=== PATIENT | female | born 1975 | race Caucasian/White ===

== ENCOUNTER 2024-04-23 21:11 | Observation (INO) | payer MEDICARE ==
[2024-04-23] MEDS ORDERED: NITRO-BID 2% UD PACKETS ONE (21:15)
[2024-04-23] MEDS ORDERED: BABY ASPIRIN 81 MG CHEW ONE (21:42)
[2024-04-23] MEDS: BABY ASPIRIN 81 MG CHEW PO ONE (21:43)
[2024-04-23 21:50] LABS: Absolute Neutrophil Ct (ANC) 3.45 x10^3/uL (1.56-6.13); BASOPHIL % 0.8 % (0.1-1.2); Basophil (Absolute #) 0.08 x10^3/uL (0.01-0.08); Eosinophil % 2.9 % (0.7-5.8); Eosinophil (Absolute #) 0.28 x10^3/uL (0.04-0.36); Hematocrit 39.8 % (34.1-44.9); Hemoglobin 13.2 g/dL (11.2-15.7); IMMATURE GRAN # 0.01 x10^3u/L (0.001-0.031); IMMATURE GRAN % 0.1 % (0.001-0.429); Lymphocyte (Absolute #) 4.82 x10^3/uL (1.18-3.74); Lymphocytes % 50.2 % (19.3-51.7); Mean Cell Volume 91.9 fL (79.4-94.8); Mean Corpuscular Hemoglobin 30.5 pg (25.6-32.2); Mean Corpuscular Hgb Concent. 33.2 g/dL (32.2-35.5); Mean Platelet Volume 11.1 fL (9.4-12.3); Monocyte (Absolute #) 0.96 x10^3/uL (0.24-0.86); Platelet Count 317 x10^3/uL (182-369); Red Blood Count 4.33 x10^6/uL (3.93-5.22); Red Cell Distribution Width 14.7 % (11.7-14.4); White Blood Count 9.6 x10^3/uL (3.98-10.04)
[2024-04-23 22:04] LABS: INR 0.94 (0.8-3.0); PROTIME 10.3 SECONDS (9.4-12.5)
[2024-04-23] MEDS: NITRO-BID 2% UD PACKETS TOP ONE (22:09)
[2024-04-23 22:14] LABS: ALBUMIN 4.6 g/dL (3.5-5.0); ANION GAP 14.9 MEQ/L (5-15); BILIRUBIN,TOTAL 0.3 mg/dL (0.2-1.3); Calcium 9.7 mg/dL (8.4-10.2); Creatinine 1 0.99 mg/dL (0.52-1.04); Total Protein 7.4 g/dL (6.3-8.2)
--- NOTE | 2024-04-23 22:59 | ERPHSYRPT ---
- History of Present Illness Time Seen by Provider: 04/23/24 21:15 Historian: patient, family Exam Limitations: no limitations Patient Subjective Stated Complaint: PT. STATES, "IM HAVING CHEST PAIN ON LEFT SIDE ONSET APPROX 8 OR 8:30PM, ALL DAY LONG WHEN I WENT TO STAND UP I WOULD GET REALLY DIZZY AND LIGHTHEAD AND I'D HAVE TO SIT RIGHT BACK DOWN. I FELT LIKE MY BLOOD PRESSURE IS DROPPING, KATHI BEEN SUPER WEAK." Triage Nursing Assessment: PT. BROUGHT TO ROOM BY W/C, ABLE TO TRASFER TO BED WITH ASSIST X1, A&OX3, SKIN P/W/D, RESP EVEN UNLABORED. NO EDEMA. ABLE TO MOVE ALL FOUR EXTREMITIES. Physician History: This is a 49-year-old white female patient who has a significant cardiac history as well as having history of hypertension, diabetes and hyperlipidemia. She presents with left anterior chest pain that she describes as ache and pressure without radiation. She states that similar to her other episodes of myocardial infarction's. Patient has had several cardiac bypass grafts in place. She also states in December 2023, she underwent a single cardiac stent placement. 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 Patient takes 1 baby aspirin a day and also is taking Brilinta. Her systolic blood pressure on arrival to emergency department is 193 mmHg. Patient states that she did take her medication as prescribed. Patient also noticed she had associated lightheadedness when she tried to stand up. She feels weak. She has not had any nausea vomiting or diarrhea symptoms. She has no flulike symptoms. She has not had a fever or cough. Timing/Duration: today Activities at Onset: none Quality: aching, pressure Location: other (Left chest) Chest Pain Radiation: no radiation Severity of Pain-Max: moderate Severity of Pain-Current: mild (To moderate) Modifying Factors: Improves With: other (Standing up gives the patient associated lightheadedness) Associated Symptoms: dizziness, No shortness of breath Nitro Today/Relief: no nitro taken today Aspirin Treatment Today: 81 mg x 1, 81 mg x 3 (We provided the patient with 81 mg tablets x 3), provided at home Allergies/Adverse Reactions: shellfish derived Allergy (Severe, Verified 04/23/24 21:59) polymyxin B Allergy (Intermediate, Verified 04/23/24 21:59) Sulfa (Sulfonamide Antibiotics) Allergy (Intermediate, Verified 12/16/24 21:59) trazodone Allergy (Intermediate, Verified 04/23/24 21:56) NSAIDS (Non-Steroidal Anti-Inflamma Adverse Reaction (Verified 04/23/24 21:59) R/T HX OF POOR KIDNEY FX Home Medications: Albuterol 8 gm Mdi Hfa [Ventolin Hfa MDI] 2 puffs IH Q4H PRN 04/23/24 [History] Atorvastatin Calcium 1 tab PO DAILY 04/23/24 [History] Buspirone HCl 5 mg [Buspar 5 mg] 1 tab PO DAILY 04/23/24 [History] Empagliflozin [Jardiance] 1 tab PO DAILY 04/23/24 [History] Escitalopram Oxalate 1 tab PO DAILY 04/23/24 [History] Ezetimibe 10 mg [Zetia 10 MG] 1 tab PO DAILY 04/23/24 [History] Fluticasone Propionate [Flonase NASAL] 1 spray NS DAILY 04/23/24 [History] Gabapentin 1 tab PO DAILY 04/23/24 [History] Lisinopril 20 mg [Zestril 20 MG] 1 tab .ROUTE DAILY 04/23/24 [History] Metoprolol Tartrate 50 mg [Lopressor 50 MG] 1 tab PO DAILY 04/23/24 [History] Potassium Chloride Tab* [Klor Con] 1 tab PO DAILY 04/23/24 [History] Ticagrelor [Brilinta] 1 tab PO DAILY 04/23/24 [History] clonazePAM [Clonazepam] 1 tab PO DAILY 04/23/24 [History] Hx Tetanus, Diphtheria Vaccination/Date Given: Yes Hx Influenza Vaccination/Date Given: No Hx Pneumococcal Vaccination/Date Given: Yes Immunizations Up to Date: No Travel Risk - International Travel Have you traveled outside of the country in past 3 weeks: No - Emerging Infectious Disease Are you exhibiting symptoms associated with any current EIDs: No - Review of Systems Constitutional: Weakness Eyes: No Symptoms Ears, Nose, & Throat: No Symptoms Respiratory: No Symptoms Cardiac: Chest Pain Abdominal/Gastrointestinal: No Symptoms Genitourinary Symptoms: No Symptoms Musculoskeletal: No Symptoms Skin: No Symptoms Neurological: Other (Lightheadedness intermittently) Endocrine: No Symptoms Hematologic/Lymphatic: No Symptoms Immunological/Allergic: No Symptoms All Other Systems: Reviewed and Negative - Past Medical History Pertinent Past Medical History: Yes Neurological History: Stroke ENT History: No Pertinent History Cardiac History: Arrhythmia, Congestive Heart Failure, Coronary Artery Disease, Deep Vein Thrombosis, High Cholesterol, Hypertension, Myocardial Infarction ([place]), Peripheral Vascular Disease Respiratory History: Asthma, CHF Endocrine Medical History: No Pertinent History Musculoskeletal History: No Pertinent History GI Medical History: Colitis, GERD History: Other Psycho-Social History: Anxiety, Depression, Other Female Reproductive Disorders: No Pertinent History Other Medical History: PTSD, IMPULSE CONTROL DISORDER, ACUTE KIDNEY INJURY IN THE PAST - Past Surgical History Past Surgical History: Yes Cardiac: CABG, Cardiac Catheterization, Cardiac Stent Gastrointestinal: Appendectomy Genitourinary: No Pertinent History Musculoskeletal: No Pertinent History Female Surgical History: No Pertinent History Other Surgical History: STENT PLACED IN BYPASS IN DECEMBER, CABG 12/2014, ABDOMINAL ADHESIONS REMOVED AND TUBAL IN 1997, - Female History Hx Last Menstrual Period: POST MENOPAUSAL - Social History Smoking Status: Current every day smoker How long have you smoked: 35 YEARS Exposure to second hand smoke: Yes Drug Use: none - Social Determinants of Health Will the patient participate in the screening: Yes Do you worry about a steady place to live?: No Do you have any problems with any of the following?: No known problems In the past 12 months,have you had to go without utilities?: No Transportation Issues: No Has anyone in your support network made you feel unsafe?: No Have you or anyone in your house had to go without enough: No - Nursing Vital Signs Nursing Vital Signs: Initial Vital Signs Pulse Rate 64 04/23/24 21:09 Blood Pressure 193/82 04/23/24 21:09 Pain Scale Pain Intensity 6 - Physical Exam General Appearance: no apparent distress, alert, anxiety Eye Exam: PERRL/EOMI, eyes nml inspection Ears, Nose, Throat Exam: normal ENT inspection, moist mucous membranes Neck Exam: normal inspection, non-tender, supple, full range of motion Respiratory Exam: normal breath sounds, chest tenderness (Left chest), lungs clear, airway intact, No respiratory distress Cardiovascular Exam: regular rate/rhythm, normal heart sounds, normal peripheral pulses Gastrointestinal/Abdomen Exam: soft, normal bowel sounds, No tenderness Pelvic Exam: not done Rectal Exam: not done Back Exam: normal inspection, normal range of motion, No CVA tenderness, No kulwinder tebral tenderness Extremity Exam: normal range of motion, pelvis stable Neurologic Exam: alert, oriented x 3, cooperative, inspector outside production II-XII nml as tested, nml cerebellar function, nml station & gait, sensation nml Skin Exam: normal color, warm, dry Lymphatic Exam: No adenopathy SpO2 Interpretation: normal SpO2: 96 O2 Delivery: Oxymizer - Course Nursing assessment & vital signs reviewed: Yes EKG Interpreted by Me: RATE (61), NORMAL AXIS, NORMAL INTERVALS, Right Bundle Branch Block, Other (No acute ischemic changes. QTc 445) Ordered Tests: Active Orders 24 hr Category Date Time Status Networking Technician STAT Care 04/23/24 21:36 Active EKG-ER Only STAT Care 04/23/24 21:35 Active IV Insertion STAT Care 04/23/24 21:35 Active Pulse Oximetry (ED) STAT Care 04/23/24 21:35 Active CHEST 1 VIEW (PORTABLE) Stat Exams 04/23/24 21:35 Taken CBC W DIFF Stat Lab 04/23/24 21:30 Completed CMP Stat Lab 04/23/24 21:30 Completed NT PRO BNPII Stat Lab 04/23/24 21:30 Completed PROTIME WITH INR Stat Lab 04/23/24 21:30 Completed TROPONIN Q4H Lab 04/23/24 21:30 Completed TROPONIN Q4H Lab 04/24/24 00:15 Completed TROPONIN Q4H Lab 04/24/24 05:45 Ordered Transfer Order Routine Transfer 04/24/24 Ordered Medication Summary Discontinued Medications Generic Name Dose Route Start Last Admin Trade Name Jose Miguel PRN Reason Stop Dose Admin Aspirin 243 mg 04/23/24 21:35 04/23/24 21:43 Aspirin 81 Mg Tab.Chew PO 04/23/24 21:36 243 mg STAT ONE Administration Aspirin Confirm 04/23/24 21:42 Aspirin 81 Mg Tab.Chew Administered 04/23/24 21:43 Dose 243 mg .ROUTE .STK-MED ONE Sodium Chloride 500 mls @ 500 mls/hr 04/23/24 22:59 04/23/24 23:03 Sodium Chloride 0.9% 500 Ml IV 04/23/24 23:58 500 mls/hr .Q1H ONE Administration Sodium Chloride Confirm 04/23/24 23:02 Sodium Chloride 0.9% 500 Ml Administered 04/23/24 23:03 Dose 500 mls @ ud IV .STK-MED ONE Nitroglycerin Confirm 04/23/24 21:15 Nitroglycerin 1 Gm Packet Administered 04/23/24 21:16 Dose 1 gm .ROUTE .STK-MED ONE Nitroglycerin 1 gm 04/23/24 22:08 04/23/24 22:09 Nitroglycerin 1 Gm Packet TOP 04/23/24 22:09 1 gm STAT ONE Administration Lab/Rad Data: Laboratory Result Diagrams 04/23/24 21:30 04/23/24 21:30 Laboratory Results 04/24/24 04/23/24 04/23/24 Range/Units 00:15 21:30 21:30 WBC (3.98-10.04) x10^3/uL RBC (3.93-5.22) x10^6/uL Hgb (11.2-15.7) g/dL Hct (34.1-44.9) % MCV (79.4-94.8) fL MCH (25.6-32.2) pg MCHC (32.2-35.5) g/dL RDW (11.7-14.4) % Plt Count (182-369) x10^3/uL MPV (9.4-12.3) fL Gran % (34.0-71.1) % Immature Gran % (Auto) (0.001-0.429) % Nucleat RBC Rel Count (0.00-0.2) % Eos # (Auto) (0.04-0.36) x10^3/uL Immature Gran # (Auto) (0.001-0.031) x10^3u/L Absolute Lymphs (auto) (1.18-3.74) x10^3/uL Absolute Monos (auto) (0.24-0.86) x10^3/uL Absolute Nucleated RBC (0.00-0.012) x10^3u/L Lymphocytes % (19.3-51.7) % Monocytes % (4.7-12.5) % Eosinophils % (0.7-5.8) % Basophils % (0.1-1.2) % Absolute Granulocytes (1.56-6.13) x10^3/uL Basophils # (0.01-0.08) x10^3/uL PT 10.3 (9.4-12.5) SECONDS INR 0.94 (0.8-3.0) Sodium (135-145) mmol/L Potassium (3.5-5.1) mmol/L Chloride (98-107) mmol/L Carbon Dioxide (22-30) mmol/L Anion Gap (5-15) MEQ/L BUN (7-17) mg/dL Creatinine (0.52-1.04) mg/dL Estimated GFR ML/MIN Glucose (74-106) mg/dL Calcium (8.4-10.2) mg/dL Total Bilirubin (0.2-1.3) mg/dL AST (14-36) U/L ALT (0-35) U/L Alkaline Phosphatase (38-126) U/L Troponin I < 0.012 < 0.012 (0.000-0.033) ng/mL NT-Pro-B Natriuret Pep (<300) pg/mL Serum Total Protein (6.3-8.2) g/dL Albumin (3.5-5.0) g/dL 04/23/24 04/23/24 Range/Units 21:30 21:30 WBC 9.6 (3.98-10.04) x10^3/uL RBC 4.33 (3.93-5.22) x10^6/uL Hgb 13.2 (11.2-15.7) g/dL Hct 39.8 (34.1-44.9) % MCV 91.9 (79.4-94.8) fL MCH 30.5 (25.6-32.2) pg MCHC 33.2 (32.2-35.5) g/dL RDW 14.7 H (11.7-14.4) % Plt Count 317 (182-369) x10^3/uL MPV 11.1 (9.4-12.3) fL Gran % 36.0 (34.0-71.1) % Immature Gran % (Auto) 0.1 (0.001-0.429) % Nucleat RBC Rel Count 0.0 (0.00-0.2) % Eos # (Auto) 0.28 (0.04-0.36) x10^3/uL Immature Gran # (Auto) 0.01 (0.001-0.031) x10^3u/L Absolute Lymphs (auto) 4.82 H (1.18-3.74) x10^3/uL Absolute Monos (auto) 0.96 H (0.24-0.86) x10^3/uL Absolute Nucleated RBC 0.00 (0.00-0.012) x10^3u/L Lymphocytes % 50.2 (19.3-51.7) % Monocytes % 10.0 (4.7-12.5) % Eosinophils % 2.9 (0.7-5.8) % Basophils % 0.8 (0.1-1.2) % Absolute Granulocytes 3.45 (1.56-6.13) x10^3/uL Basophils # 0.08 (0.01-0.08) x10^3/uL PT (9.4-12.5) SECONDS INR (0.8-3.0) Sodium 141 (135-145) mmol/L Potassium 4.0 (3.5-5.1) mmol/L Chloride 107 (98-107) mmol/L Carbon Dioxide 23 (22-30) mmol/L Anion Gap 14.9 (5-15) MEQ/L BUN 15 (7-17) mg/dL Creatinine 0.99 (0.52-1.04) mg/dL Estimated GFR 69.0 ML/MIN Glucose 119 H (74-106) mg/dL Calcium 9.7 (8.4-10.2) mg/dL Total Bilirubin 0.30 (0.2-1.3) mg/dL AST 29 (14-36) U/L ALT 19 (0-35) U/L Alkaline Phosphatase 93 (38-126) U/L Troponin I (0.000-0.033) ng/mL NT-Pro-B Natriuret Pep 181 (<300) pg/mL Serum Total Protein 7.4 (6.3-8.2) g/dL Albumin 4.6 (3.5-5.0) g/dL - Progress Progress: improved, re-examined Air Movement: good Progress Note: 04/23/24 23:02 My medical decision making and the assignment of moderate complexity to this patient's medical issue today is based on review of the patient's past medical history, review of the patient's medication list, reviewed patient drug allergy list, history present illness and physical findings on examination. The workup in this patient includes placement of an intravenous line, twelve-lead EKG, CBC, CMP, troponin level, BNP, chest x-ray Differential diagnosis includes but is not limited to arrhythmia, electrolyte abnormalities, myocardial infarction, I interpreted the patient's laboratory data results. Based on the laboratory data results, the patient does not have an acute, emergent medical issue. I reexamined the patient. Although her left chest pain has improved it is still present. She also feels lightheaded and dizzy. Her systolic blood pressure has dropped from the initial systolic blood pressure 193 mmHg down to 89 mmHg. We wiped off the nitroglycerin paste. We are providing her with a 500 cc bolus of crystalloid. I will be contacting Dr. Jeronimo, her fuel cell repairer in [place]. The patient states her symptoms are better but she still having persistent intermittent lightheadedness and the chest pain. I was informed by our nursing staff that Dr. Hinojosa is covering for Dr. Elizondo 04/23/24 23:05 I interpreted the patient's preliminary chest x-ray report. There are no acute cardiopulmonary processes 04/23/24 23:12 04/23/24 23:[address] Hinojosa, the fuel cell repairer who is covering for Dr. Jeronimo, the patient's fuel cell repairer. I reviewed the patient history, presenting complaint, workup results and discussed with him the fact that the patient is still symptomatic. She is at high risk and should be observed in a facility where there is a fuel cell repairer. He stated that he would except the patient. However, the transfer center was not on the three-way call as expected and we will contact the transfer center to make sure that he is spoken with them. 04/23/24 23:54 Dr. Hinojosa, the fuel cell repairer covering for this patient's cardiology service this evening, accepts the patient in transfer. However, the transfer center stated that there will not be any beds open until tomorrow morning. We will contact Dr. Christy, our telehospitalist telecommunications manager at this time to place the patient in observation on a monitored bed until transfer can take place tomorrow morning. 04/24/24 00:[address] Christy, our telehospitalist on at this time. I reviewed the patient history, presenting complaint, workup results and discussed with him the most up-to-date vital signs at the time of our discussion. He accepts the patient to be placed in observation. We will repeat a troponin level to make sure it has not suddenly increased from normal. If the repeat troponin is normal, we will proceed with the plan. However, if the troponin has increased, we will need to call the fuel cell repairer in [place] back for a more emerge nt/urgent transfer 04/24/24 00:11 Interpreted the second (3-hour) twelve-lead EKG that was performed on 04/23/2024 at 2258. The heart rate is 57 bpm and is normal sinus rhythm. There is a right bundle manju block. There is no evidence of any acute ischemia. The QTc is 450. Blood Culture(s) Obtained: No Antibiotics given: No Discussed with : Evens Counseled pt/family regarding: lab results, diagnosis, rad results Medical Desision Making - Independent Historian Additional History obtained from: Spouse - Diagnostic Testing Diagnostic test were ordered, analyzed, and reviewed by me: Yes Radiological Interpretation: Interpreted by me - Risk of complications The pt has a high risk of morbidity or mortality based on: Decision regarding hospitilization or escalation of hosp level of care - Departure Departure Disposition: Observation Clinical Impression: Nonspecific chest pain, Lightheadedness Condition: Fair Critical Care Time: No Referrals: DOCTOR,NO FAMILY [Primary Care Provider] - Follow up/PCP as directed
[2024-04-23] MEDS ORDERED: Sodium Chloride 0.9% 500 ML 500 ML IV ONE (23:02)
[2024-04-23] MEDS: Sodium Chloride 0.9% 500 ML 500 ML IV ONE (23:03)
[2024-04-24] MEDS ORDERED: Sodium Chloride 0.9% 1000 ML 0 ML ONE (00:51)
[2024-04-24] MEDS ORDERED: Sodium Chloride 0.9% 500 ML 500 ML IV ONE (00:54)
[2024-04-24] MEDS: Sodium Chloride 0.9% 500 ML 500 ML IV SCH (00:54)
[2024-04-24] MEDS ORDERED: HUMULIN R SQ PRN (01:08)
[2024-04-24] MEDS ORDERED: TYLENOL 325 MG PO PRN (01:08)
[2024-04-24] MEDS ORDERED: Zofran 4 MG/2 ML VIAL IV PRN (01:08)
[2024-04-24] MEDS ORDERED: Ventolin Hfa MDI IH PRN (02:31)
[2024-04-24] MEDS ORDERED: Flonase NASAL NS PRN (02:31)
[2024-04-24] MEDS ORDERED: MILK OF MAGNESIA 30 ML PO PRN (02:35)
[2024-04-24] MEDS ORDERED: HUMALOG SQ PRN (02:35)
[2024-04-24] MEDS ORDERED: Docusate Sodium 100 MG PO PRN (02:35)
--- NOTE | 2024-04-24 02:44 | PCM.HP ---
History of Present Illness - Chief Complaint Chief Complaint: nonspecific chest pain Date: 04/23/24 History of Present Illness: is a 49 year old female with a history of CAD (2 vessel CABG in 2014 and PCI in December 2023 deployed to a CABG graft, follows with Dr. Jeronimo in [place]), hypertension, diabetes and hyperlipidemia, who now presented with left anterior chest pain that she describes as ache and pressure without radiation. She states that similar to her other episodes of myocardial infarctions in the past. 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 Patient takes 1 baby aspirin a day and also is taking Brilinta. Patient states that she did take her medication as prescribed. Patient also noticed she had associated lightheadedness when she tried to stand up. She feels weak. She has not had any nausea vomiting or diarrhea symptoms. She has no flulike symptoms. She has not had a fever or cough. In the ED, workup was negative and request for transfer to [place] was arranged, but bed availability was pending so I was asked to admit the patient overnight until transfer was completed. The patient has not had more chest pain episodes since transfer to the floor. - Review of Systems Constitutional: No Symptoms Eyes: No Symptoms Ears, Nose, & Throat: No Symptoms Respiratory: No Symptoms Cardiac: Chest Pain Abdominal/Gastrointestinal: No Symptoms Genitourinary Symptoms: No Symptoms Musculoskeletal: No Symptoms Skin: No Symptoms Neurological: Dizziness Psychological: No Symptoms Endocrine: No Symptoms Hematologic/Lymphatic: No Symptoms Immunological/Allergic: No Symptoms All Other Systems: Reviewed and Negative Medications & Allergies Home Medications: Home Medication List Albuterol 8 gm Mdi Hfa [Ventolin Hfa MDI] 2 puffs IH Q4H PRN 04/23/24 [History Confirmed 04/23/24] Atorvastatin Calcium 1 tab PO HS 04/23/24 [History Confirmed 04/24/24] Buspirone HCl 5 mg [Buspar 5 mg] 1 tab PO BID 04/23/24 [History Confirmed 04/24/24] Empagliflozin [Jardiance] 1 tab PO DAILY 04/23/24 [History Confirmed 04/24/24] Escitalopram Oxalate 1 tab PO HS 04/23/24 [History Confirmed 04/24/24] Ezetimibe 10 mg [Zetia 10 MG] 1 tab PO DAILY 04/23/24 [History Confirmed 04/24/24] Fluticasone Propionate [Flonase NASAL] 1 spray NS HS PRN 04/23/24 [History Confirmed 04/24/24] Gabapentin 1 tab PO TID 04/23/24 [History Confirmed 04/24/24] Lisinopril 20 mg [Zestril 20 MG] 1 tab .ROUTE DAILY 04/23/24 [History Confirmed 04/24/24] Metoprolol Tartrate 50 mg [Lopressor 50 MG] 1 tab PO HS 04/23/24 [History Confirmed 04/24/24] Potassium Chloride Tab* [Klor Con] 1 tab PO DAILY 04/23/24 [History Confirmed 04/24/24] Ticagrelor [Brilinta] 1 tab PO BID 04/23/24 [History Confirmed 04/24/24] clonazePAM [Clonazepam] 1 tab PO HS 04/23/24 [History Confirmed 04/24/24] Furosemide 20 mg [Lasix 20 mg] 20 mg PO DAILY 04/24/24 [History Confirmed 04/24/24] Allergies/Adverse Reactions: Allergies Allergy/AdvReac Type Severity Reaction Status Date / Time shellfish derived Allergy Severe Verified 04/23/24 21:59 polymyxin B Allergy Intermediate Verified 04/23/24 21:59 Sulfa (Sulfonamide Allergy Intermediate Verified 04/23/24 21:59 Antibiotics) trazodone Allergy Intermediate Verified 04/23/24 21:56 NSAIDS (Non-Steroidal AdvReac Verified 04/23/24 21:59 Anti-Inflamma - Past Medical History Past Medical History: Yes Neurological History: Stroke ENT History: No Pertinent History Cardiac History: Arrhythmia, Congestive Heart Failure, Coronary Artery Disease, High Cholesterol, Hypertension, Myocardial Infarction ([place]), Peripheral Vascular Disease Respiratory History: Asthma, Bronchitis, CHF, Pneumonia Endocrine Medical History: No Pertinent History Musculoskelatal History: Fractures GI Medical History: Colitis, GERD History: Other Pyscho-Social History: Anxiety, Depression, Other Reproductive Disorders: No Pertinent History Comment: PTSD, IMPULSE CONTROL DISORDER, ACUTE KIDNEY INJURY IN THE PAST - Female History Are you now?: No - Past Surgical History Past Surgical History: Yes Neuro Surgical History: No Pertinent History Cardiac History: CABG, Cardiac Catheterization, Cardiac Stent Respiratory Surgery: No Pertinent History GI Surgical History: Appendectomy Genitourinary Surgical Hx: No Pertinent History Musculskeletal Surgical Hx: No Pertinent History Female Surgical History: Tubal Ligation Other Surgical History: STENT PLACED IN [place]PASS IN 12/2023, CABG 12/2014, ABDOMINAL ADHESIONS REMOVED AND TUBAL IN 1997, Family History: No family history of early CAD is reported - Social History Smoking Status: Current every day smoker How long have you smoked: 35 years Exposure to second hand smoke: Yes Alcohol: None Drug Use: none - Social Determinants of Health Will the patient participate in the screening: Yes Do you worry about a steady place to live?: No Do you have any problems with any of the following?: No known problems In the past 12 months,have you had to go without utilities?: No Have you or anyone in your house had to go without enough: No Transportation Issues: No Has anyone in your support network made you feel unsafe?: No Does the patient want assistance with any of the above?: No - Physical Exam Vital Signs: Vital Signs - 24 hr Temp Pulse Pulse Resp BP BP Pulse Ox 04/24/24 01:08 97.5 F 58 L 19 123/59 96 04/24/24 00:49 96 04/24/24 00:41 47 L 115/67 95 04/24/24 00:30 52 L 98/58 95 04/24/24 00:21 49 L 105/52 96 04/24/24 00:11 50 L 103/43 98 04/24/24 00:01 53 L 87/59 99 04/23/24 23:50 49 L 124/62 92 L 04/23/24 23:40 53 L 107/51 100 04/23/24 23:31 55 L 108/54 94 L 04/23/24 23:20 59 L 109/57 98 04/23/24 23:10 52 L 105/59 99 04/23/24 23:01 55 L 17 89/54 97 04/23/24 22:54 56 L 18 107/59 96 04/23/24 22:30 55 L 16 89/57 98 04/23/24 22:13 60 18 100/58 98 04/23/24 22:04 97 04/23/24 22:01 68 100/58 96 04/23/24 21:31 62 129/64 92 L 04/23/24 21:19 97.2 F 64 67 18 193/82 98 04/23/24 21:09 64 193/82 General Appearance: no apparent distress, alert Neurologic Exam: alert, oriented x 3, cooperative, bail bondsman II-XII nml as tested, normal mood/affect, nml cerebellar function Eye Exam: PERRL/EOMI, eyes nml inspection Ears, Nose, Throat Exam: normal ENT inspection Neck Exam: normal inspection, non-tender, supple, full range of motion Respiratory Exam: normal breath sounds, lungs clear Cardiovascular Exam: regular rate/rhythm, normal heart sounds Gastrointestinal/Abdomen Exam: soft, normal bowel sounds Back Exam: normal range of motion Extremity Exam: normal inspection, normal range of motion Skin Exam: normal color Results - Labs Lab/Micro Results: Lab Results-Last 24 Hours 04/23/24 04/23/24 04/23/24 Range/Units 21:30 21:30 21:30 WBC 9.6 (3.98-10.04) x10^3/uL RBC 4.33 (3.93-5.22) x10^6/uL Hgb 13.2 (11.2-15.7) g/dL Hct 39.8 (34.1-44.9) % MCV 91.9 (79.4-94.8) fL MCH 30.5 (25.6-32.2) pg MCHC 33.2 (32.2-35.5) g/dL RDW 14.7 H (11.7-14.4) % Plt Count 317 (182-369) x10^3/uL MPV 11.1 (9.4-12.3) fL Gran % 36.0 (34.0-71.1) % Immature Gran % (Auto) 0.1 (0.001-0.429) % Nucleat RBC Rel Count 0.0 (0.00-0.2) % Eos # (Auto) 0.28 (0.04-0.36) x10^3/uL Immature Gran # (Auto) 0.01 (0.001-0.031) x10^3u/L Absolute Lymphs (auto) 4.82 H (1.18-3.74) x10^3/uL Absolute Monos (auto) 0.96 H (0.24-0.86) x10^3/uL Absolute Nucleated RBC 0.00 (0.00-0.012) x10^3u/L Lymphocytes % 50.2 (19.3-51.7) % Monocytes % 10.0 (4.7-12.5) % Eosinophils % 2.9 (0.7-5.8) % Basophils % 0.8 (0.1-1.2) % Absolute Granulocytes 3.45 (1.56-6.13) x10^3/uL Basophils # 0.08 (0.01-0.08) x10^3/uL PT 10.3 (9.4-12.5) SECONDS INR 0.94 (0.8-3.0) Sodium 141 (135-145) mmol/L Potassium 4.0 (3.5-5.1) mmol/L Chloride 107 (98-107) mmol/L Carbon Dioxide 23 (22-30) mmol/L Anion Gap 14.9 (5-15) MEQ/L BUN 15 (7-17) mg/dL Creatinine 0.99 (0.52-1.04) mg/dL Estimated GFR 69.0 ML/MIN Glucose 119 H (74-106) mg/dL Calcium 9.7 (8.4-10.2) mg/dL Total Bilirubin 0.30 (0.2-1.3) mg/dL AST 29 (14-36) U/L ALT 19 (0-35) U/L Alkaline Phosphatase 93 (38-126) U/L Troponin I (0.000-0.033) ng/mL NT-Pro-B Natriuret Pep 181 (<300) pg/mL Serum Total Protein 7.4 (6.3-8.2) g/dL Albumin 4.6 (3.5-5.0) g/dL 04/23/24 04/24/24 Range/Units 21:30 00:15 WBC (3.98-10.04) x10^3/uL RBC (3.93-5.22) x10^6/uL Hgb (11.2-15.7) g/dL Hct (34.1-44.9) % MCV (79.4-94.8) fL MCH (25.6-32.2) pg MCHC (32.2-35.5) g/dL RDW (11.7-14.4) % Plt Count (182-369) x10^3/uL MPV (9.4-12.3) fL Gran % (34.0-71.1) % Immature Gran % (Auto) (0.001-0.429) % Nucleat RBC Rel Count (0.00-0.2) % Eos # (Auto) (0.04-0.36) x10^3/uL Immature Gran # (Auto) (0.001-0.031) x10^3u/L Absolute Lymphs (auto) (1.18-3.74) x10^3/uL Absolute Monos (auto) (0.24-0.86) x10^3/uL Absolute Nucleated RBC (0.00-0.012) x10^3u/L Lymphocytes % (19.3-51.7) % Monocytes % (4.7-12.5) % Eosinophils % (0.7-5.8) % Basophils % (0.1-1.2) % Absolute Granulocytes (1.56-6.13) x10^3/uL Basophils # (0.01-0.08) x10^3/uL PT (9.4-12.5) SECONDS INR (0.8-3.0) Sodium (135-145) mmol/L Potassium (3.5-5.1) mmol/L Chloride (98-107) mmol/L Carbon Dioxide (22-30) mmol/L Anion Gap (5-15) MEQ/L BUN (7-17) mg/dL Creatinine (0.52-1.04) mg/dL Estimated GFR ML/MIN Glucose (74-106) mg/dL Calcium (8.4-10.2) mg/dL Total Bilirubin (0.2-1.3) mg/dL AST (14-36) U/L ALT (0-35) U/L Alkaline Phosphatase (38-126) U/L Troponin I < 0.012 < 0.012 (0.000-0.033) ng/mL NT-Pro-B Natriuret Pep (<300) pg/mL Serum Total Protein (6.3-8.2) g/dL Albumin (3.5-5.0) g/dL - Radiology Impressions Radiology Exams & Impressions: Radiology Procedures Category Date Time Status CHEST 1 VIEW (PORTABLE) Stat Exams 04/23/24 21:35 Taken - Other Procedures and Tests Respiratory Therapy 04/24/24 01:08 EKG REPEAT IN AM 04/24/24 01:52 Smoking Cessation Education ONCE Assessment/Plan (1) Nonspecific chest pain Current Visit: Yes Status: Acute Assessment & Plan: Troponins negative. Monitor on telemetry. Transfer to when bed available, for evaluation by Dr. Jeronimo's team. Code(s): R07.9 - CHEST PAIN, UNSPECIFIED (2) CAD (coronary artery disease) Current Visit: Yes Status: Acute Assessment & Plan: Follows with Dr. Jeronimo. Continue current regimen. Code(s): I25.10 - ATHSCL HEART DISEASE OF [place] CORONARY ARTERY W/O ANG PCTRS (3) Essential hypertension Current Visit: Yes Status: Acute Assessment & Plan: Monitor BP on home regimen. Code(s): I10 - ESSENTIAL (PRIMARY) HYPERTENSION (4) Hyperlipidemia Current Visit: Yes Status: Acute Assessment & Plan: Continue statin. Code(s): E78.5 - HYPERLIPIDEMIA, UNSPECIFIED (5) Hyperglycemia due to type 2 diabetes mellitus Current Visit: Yes Status: Acute Assessment & Plan: Follow sugars on ISS. Code(s): E11.65 - TYPE 2 DIABETES MELLITUS WITH HYPERGLYCEMIA (6) Lightheadedness Current Visit: Yes Status: Acute Assessment & Plan: Monitor BP trend. Will need orthostatics checked at [facility] when cleared by cardiology for ambulation. Code(s): R42 - DIZZINESS AND GIDDINESS Telemedicine Encounter - Telemedicine Encounter Telemedicine Encounter: "The entirety of this encounter was performed via Telemedicine" This visit was performed using real-time audio and video connection between my location and thepatients locationwith the assistance of a surrogateat the p atients location. Written or verbal consent was obtained from the patient/guardian to perform this [facility]. Any patient questions regarding the telemedicine interaction were answered.
[2024-04-24] MEDS: Sodium Chloride 0.9% 1000 ML 1,000 ML IV SCH (04:00)
[2024-04-24 06:00] LABS: Absolute Neutrophil Ct (ANC) 3.05 x10^3/uL (1.56-6.13); BASOPHIL % 0.8 % (0.1-1.2); Basophil (Absolute #) 0.07 x10^3/uL (0.01-0.08); Eosinophil % 3.5 % (0.7-5.8); Eosinophil (Absolute #) 0.29 x10^3/uL (0.04-0.36); Hematocrit 38.6 % (34.1-44.9); Hemoglobin 12.1 g/dL (11.2-15.7); IMMATURE GRAN # 0.01 x10^3u/L (0.001-0.031); IMMATURE GRAN % 0.1 % (0.001-0.429); Lymphocyte (Absolute #) 4.24 x10^3/uL (1.18-3.74); Lymphocytes % 50.5 % (19.3-51.7); Mean Cell Volume 94.4 fL (79.4-94.8); Mean Corpuscular Hemoglobin 29.6 pg (25.6-32.2); Mean Corpuscular Hgb Concent. 31.3 g/dL (32.2-35.5); Mean Platelet Volume 11.1 fL (9.4-12.3); Monocyte (Absolute #) 0.74 x10^3/uL (0.24-0.86); Monocytes % 8.8 % (4.7-12.5); Neutrophil % 36.3 % (34.0-71.1); Platelet Count 277 x10^3/uL (182-369); Red Blood Count 4.09 x10^6/uL (3.93-5.22); Red Cell Distribution Width 14.8 % (11.7-14.4); White Blood Count 8.4 x10^3/uL (3.98-10.04)
[2024-04-24 06:44] LABS: Creatinine 1 0.84 mg/dL (0.52-1.04)
[2024-04-24 06:45] LABS: ALBUMIN 3.9 g/dL (3.5-5.0); ANION GAP 11.4 MEQ/L (5-15); BILIRUBIN,TOTAL 0.2 mg/dL (0.2-1.3); EST GLOMERULAR FILTRATION RATE 84.1 ML/MIN; Potassium 3.9 mmol/L (3.5-5.1); Total Protein 6.7 g/dL (6.3-8.2)
[2024-04-24] MEDS ORDERED: VENTOLIN COMMON CANISTER IH PRN (07:25)
[2024-04-24 08:08] VITALS: BP 116/55; PULSE 51; RESP 17; TEMP 97.5; O2SAT 96
--- NOTE | 2024-04-24 08:46 | XRAY ---
Indication: Chest pain. Comparison: None Portable apical lordotic chest inflated and clear. Heart not enlarged with CABG. Bony thorax intact with osteopenia and minimal degenerative changes. Impression: Nonacute chest with chronic features.
[2024-04-24] MEDS ORDERED: Zestril 20 MG PO SCH (10:00)
[2024-04-24] MEDS ORDERED: NEURONTIN PO SCH (10:00)
[2024-04-24] MEDS ORDERED: BRILINTA PO SCH (10:00)
[2024-04-24] MEDS ORDERED: ENOXAPARIN SODIUM SQ SCH (10:00)
[2024-04-24] MEDS ORDERED: BUSPAR 5 MG PO SCH (10:00)
[2024-04-24] MEDS ORDERED: Protonix 40MG Tablet PO SCH (10:00)
[2024-04-24] MEDS ORDERED: Klor Con PO SCH (10:00)
[2024-04-24] MEDS ORDERED: NON-FORMULARY ITEM (Gabapentin [Gabapentin] 600 MG Tablet) PO SCH (10:00)
[2024-04-24] MEDS ORDERED: Zetia 10 MG PO SCH (10:00)
[2024-04-24] MEDS ORDERED: JARDIANCE PO SCH (10:00)
[2024-04-24] MEDS ORDERED: LASIX 20 MG PO SCH (10:00)
--- NOTE | 2024-04-24 10:35 | PCM.DS ---
Discharge Summary Date of Admission: 04/24/24 01:05 Date of Discharge: 04/24/24 Admitting Physician: EDILBERTO CERVANTES MD Primary Care Provider: NO FAMILY DOCTOR Allergies Allergies shellfish derived Allergy (Severe, Verified 04/23/24 21:59) polymyxin B Allergy (Intermediate, Verified 04/23/24 21:59) Sulfa (Sulfonamide Antibiotics) Allergy (Intermediate, Verified 04/23/24 21:59) trazodone Allergy (Intermediate, Verified 04/23/24 21:56) NSAIDS (Non-Steroidal Anti-Inflamma Adverse Reaction (Verified 04/23/24 21:59) R/T HX OF POOR KIDNEY FX Hospital Summary - Hospital Course Hospital Course: is a 49 year old female with a history of CAD (2 vessel CABG in 2014 and PCI in December 2023 deployed to a CABG graft, follows with Dr. Jeronimo in [place]), hypertension, diabetes and hyperlipidemia. She presented with left anterior chest pain that she described as ache and pressure without radiation. She stated that is was similar to her other episodes of myocardial infarctions in the past. 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 Patient takes 1 baby aspirin a day and also is taking Brilinta. Patient states that she did take her medication as prescribed. Patient also noticed she had associated lightheadedness when she tried to stand up. She feels weak. She has not had any nausea vomiting or diarrhea symptoms. She has no flulike symptoms. She has not had a fever or cough. In the ED, workup was negative and request for transfer to [place] was arranged, but bed availability was pending so hospitalist was asked to admit the patient overnight until transfer was completed. The patient has not had more chest pain episodes since transfer to the floor. This morning she denies CP and trops x3 negative. She is wanting to d/c home and does not want to transfer to [place] d/t ambulance cost. Discussed possible d/c after discussion with collaborating provider this AM. Was later asked to come back and speak with pt and she wanted to leave immediately and sign out AMA as she was not happy she had not received her morning meds yet. Explained I would speak with nurse and have her give meds as soon as possible and she continued to want to leave AMA. in room at time of interaction. 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 She reported she would call today and make an appointment. Pt denied CP, SOB, abd. pain, N/V/D. - Vitals & Intake/Output Vital Signs: Vital Signs Temperature 97.5 F 04/24/24 08:00 Pulse Rate 51 L 04/24/24 08:00 Respiratory Rate 17 04/24/24 08:00 Blood Pressure 116/55 04/24/24 08:00 O2 Sat by Pulse Oximetry 96 04/24/24 08:00 Intake & Output: Intake & Output 04/21/24 04/22/24 04/23/24 04/24/24 11:59 11:59 11:59 11:59 Intake Total 623 Balance 623 Weight 85.7 kg - Lab Result Diagrams: 04/24/24 05:49 04/24/24 05:49 Lab Results-Last 24 Hrs: Lab Results-Last 24 Hours 04/23/24 04/23/24 04/23/24 Range/Units 21:30 21:30 21:30 WBC 9.6 (3.98-10.04) x10^3/uL RBC 4.33 (3.93-5.22) x10^6/uL Hgb 13.2 (11.2-15.7) g/dL Hct 39.8 (34.1-44.9) % MCV 91.9 (79.4-94.8) fL MCH 30.5 (25.6-32.2) pg MCHC 33.2 (32.2-35.5) g/dL RDW 14.7 H (11.7-14.4) % Plt Count 317 (182-369) x10^3/uL MPV 11.1 (9.4-12.3) fL Gran % 36.0 (34.0-71.1) % Immature Gran % (Auto) 0.1 (0.001-0.429) % Nucleat RBC Rel Count 0.0 (0.00-0.2) % Eos # (Auto) 0.28 (0.04-0.36) x10^3/uL Immature Gran # (Auto) 0.01 (0.001-0.031) x10^3u/L Absolute Lymphs (auto) 4.82 H (1.18-3.74) x10^3/uL Absolute Monos (auto) 0.96 H (0.24-0.86) x10^3/uL Absolute Nucleated RBC 0.00 (0.00-0.012) x10^3u/L Lymphocytes % 50.2 (19.3-51.7) % Monocytes % 10.0 (4.7-12.5) % Eosinophils % 2.9 (0.7-5.8) % Basophils % 0.8 (0.1-1.2) % Absolute Granulocytes 3.45 (1.56-6.13) x10^3/uL Basophils # 0.08 (0.01-0.08) x10^3/uL PT 10.3 (9.4-12.5) SECONDS INR 0.94 (0.8-3.0) Sodium 141 (135-145) mmol/L Potassium 4.0 (3.5-5.1) mmol/L Chloride 107 (98-107) mmol/L Carbon Dioxide 23 (22-30) mmol/L Anion Gap 14.9 (5-15) MEQ/L BUN 15 (7-17) mg/dL Creatinine 0.99 (0.52-1.04) mg/dL Estimated GFR 69.0 ML/MIN Glucose 119 H (74-106) mg/dL POC Glucometer (74 to 106) mg/dL Calcium 9.7 (8.4-10.2) mg/dL Total Bilirubin 0.30 (0.2-1.3) mg/dL AST 29 (14-36) U/L ALT 19 (0-35) U/L Alkaline Phosphatase 93 (38-126) U/L Troponin I (0.000-0.033) ng/mL NT-Pro-B Natriuret Pep 181 (<300) pg/mL Serum Total Protein 7.4 (6.3-8.2) g/dL Albumin 4.6 (3.5-5.0) g/dL 04/23/24 04/24/24 04/24/24 Range/Units 21:30 00:15 05:49 WBC (3.98-10.04) x10^3/uL RBC (3.93-5.22) x10^6/uL Hgb (11.2-15.7) g/dL Hct (34.1-44.9) % MCV (79.4-94.8) fL MCH (25.6-32.2) pg MCHC (32.2-35.5) g/dL RDW (11.7-14.4) % Plt Count (182-369) x10^3/uL MPV (9.4-12.3) fL Gran % (34.0-71.1) % Immature Gran % (Auto) (0.001-0.429) % Nucleat RBC Rel Count (0.00-0.2) % Eos # (Auto) (0.04-0.36) x10^3/uL Immature Gran # (Auto) (0.001-0.031) x10^3u/L Absolute Lymphs (auto) (1.18-3.74) x10^3/uL Absolute Monos (auto) (0.24-0.86) x10^3/uL Absolute Nucleated RBC (0.00-0.012) x10^3u/L Lymphocytes % (19.3-51.7) % Monocytes % (4.7-12.5) % Eosinophils % (0.7-5.8) % Basophils % (0.1-1.2) % Absolute Granulocytes (1.56-6.13) x10^3/uL Basophils # (0.01-0.08) x10^3/uL PT (9.4-12.5) SECONDS INR (0.8-3.0) Sodium (135-145) mmol/L Potassium (3.5-5.1) mmol/L Chloride (98-107) mmol/L Carbon Dioxide (22-30) mmol/L Anion Gap (5-15) MEQ/L BUN (7-17) mg/dL Creatinine (0.52-1.04) mg/dL Estimated GFR ML/MIN Glucose (74-106) mg/dL POC Glucometer (74 to 106) mg/dL Calcium (8.4-10.2) mg/dL Total Bilirubin (0.2-1.3) mg/dL AST (14-36) U/L ALT (0-35) U/L Alkaline Phosphatase (38-126) U/L Troponin I < 0.012 < 0.012 < 0.012 (0.000-0.033) ng/mL NT-Pro-B Natriuret Pep (<300) pg/mL Serum Total Protein (6.3-8.2) g/dL Albumin (3.5-5.0) g/dL 04/24/24 04/24/24 04/24/24 Range/Units 05:49 05:49 08:26 WBC 8.4 (3.98-10.04) x10^3/uL RBC 4.09 (3.93-5.22) x10^6/uL Hgb 12.1 (11.2-15.7) g/dL Hct 38.6 (34.1-44.9) % MCV 94.4 (79.4-94.8) fL MCH 29.6 (25.6-32.2) pg MCHC 31.3 L (32.2-35.5) g/dL RDW 14.8 H (11.7-14.4) % Plt Count 277 (182-369) x10^3/uL MPV 11.1 (9.4-12.3) fL Gran % 36.3 (34.0-71.1) % Immature Gran % (Auto) 0.1 (0.001-0.429) % Nucleat RBC Rel Count 0.0 (0.00-0.2) % Eos # (Auto) 0.29 (0.04-0.36) x10^3/uL Immature Gran # (Auto) 0.01 (0.001-0.031) x10^3u/L Absolute Lymphs (auto) 4.24 H (1.18-3.74) x10^3/uL Absolute Monos (auto) 0.74 (0.24-0.86) x10^3/uL Absolute Nucleated RBC 0.00 (0.00-0.012) x10^3u/L Lymphocytes % 50.5 (19.3-51.7) % Monocytes % 8.8 (4.7-12.5) % Eosinophils % 3.5 (0.7-5.8) % Basophils % 0.8 (0.1-1.2) % Absolute Granulocytes 3.05 (1.56-6.13) x10^3/uL Basophils # 0.07 (0.01-0.08) x10^3/uL PT (9.4-12.5) SECONDS INR (0.8-3.0) Sodium 141 (135-145) mmol/L Potassium 3.9 (3.5-5.1) mmol/L Chloride 111 H (98-107) mmol/L Carbon Dioxide 23 (22-30) mmol/L Anion Gap 11.4 (5-15) MEQ/L BUN 14 (7-17) mg/dL Creatinine 0.84 (0.52-1.04) mg/dL Estimated GFR 84.1 ML/MIN Glucose 101 (74-106) mg/dL POC Glucometer 121 H (74 to 106) mg/dL Calcium 9.0 (8.4-10.2) mg/dL Total Bilirubin 0.20 (0.2-1.3) mg/dL AST 24 (14-36) U/L ALT 17 (0-35) U/L Alkaline Phosphatase 88 (38-126) U/L Troponin I (0.000-0.033) ng/mL NT-Pro-B Natriuret Pep 119 (<300) pg/mL Serum Total Protein 6.7 (6.3-8.2) g/dL Albumin 3.9 (3.5-5.0) g/dL Micro Results-Entire Visit: Accuchecks Date 04/24/24 Time 08:27 - Radiology Exams Ordered Rad Exams-Entire Visit: Radiology Procedures Category Date Time Status CHEST 1 VIEW (PORTABLE) Stat Exams 04/23/24 21:35 Completed - Procedures and Test Procedures and Tests throughout Hospitalization: Therapy Orders & Screens 04/24/24 01:08 EKG REPEAT IN AM Comment: 04/24/24 01:52 Smoking Cessation Education ONCE Comment: Diagnosis: nonspecific chest pain Smoking Status: Current every day smoker How long have you smoked: 35 years Have you smoked in the past 12 months: Yes Approximately how many cigarettes per day: pack/day Do you dip or chew tobacco: No 04/24/24 06:13 Respiratory Therapy Assessment DAILY Comment: Diagnosis: nonspecific chest pain Discharge Exam General Appearance: no apparent distress, alert Neurologic Exam: alert, oriented x 3, nml cerebellar function, sensation nml, agitation, uncooperative, No motor deficits Eye Exam: PERRL, EOMI, eyes nml inspection Ears, Nose, Throat Exam: normal ENT inspection, pharynx normal, moist mucous membranes Neck Exam: normal inspection, non-tender, supple, full range of motion Respiratory Exam: normal breath sounds, lungs clear, No respiratory distress Cardiovascular Exam: regular rate/rhythm, normal heart sounds Gastrointestinal/Abdomen Exam: soft, No tenderness, No mass Pelvic Exam: deferred Rectal Exam: deferred Back Exam: normal inspection, normal range of motion, No CVA tenderness, No vertebral tenderness Extremity Exam: normal inspection, normal range of motion Skin Exam: normal color, warm, dry Final Diagnosis/Problem List - Final Discharge Diagnosis/Problem (1) Nonspecific chest pain Current Visit: Yes Status: Acute Code(s): R07.9 - CHEST PAIN, UNSPECIFIED (2) CAD (coronary artery disease) Current Visit: Yes Status: Acute Code(s): I25.10 - ATHSCL HEART DISEASE OF [place] CORONARY ARTERY W/O ANG PCTRS (3) Essential hypertension Current Visit: Yes Status: Acute Code(s): I10 - ESSENTIAL (PRIMARY) HYPERTENSION (4) Hyperlipidemia Current Visit: Yes Status: Acute Code(s): E78.5 - HYPERLIPIDEMIA, UNSPECIFIED (5) Hyperglycemia due to type 2 diabetes mellitus Current Visit: Yes Status: Acute Code(s): E11.65 - TYPE 2 DIABETES MELLITUS WITH HYPERGLYCEMIA (6) Lightheadedness Current Visit: Yes Status: Acute Assessment & Plan: (1) Nonspecific chest pain Current Visit: Yes Status: Acute Assessment & Plan: Troponins negative. Monitor on telemetry. Transfer to when bed available, for evaluation by Dr. Jeronimo's team. 04/24 - pt refused transfer and signed out AMA Code(s): R07.9 - CHEST PAIN, UNSPECIFIED (2) CAD (coronary artery disease) Current Visit: Yes Status: Acute Assessment & Plan: Follows with Dr. Jeronimo. Continue current regimen. Code(s): I25.10 - ATHSCL HEART DISEASE OF [place] CORONARY ARTERY W/O ANG PCTRS (3) Essential hypertension Current Visit: Yes Status: Acute Assessment & Plan: Monitor BP on home regimen. Code(s): I10 - ESSENTIAL (PRIMARY) HYPERTENSION (4) Hyperlipidemia Current Visit: Yes Status: Acute Assessment & Plan: Continue statin. Code(s): E78.5 - HYPERLIPIDEMIA, UNSPECIFIED (5) Hyperglycemia due to type 2 diabetes mellitus Current Visit: Yes Status: Acute Assessment & Plan: Follow sugars on ISS. Code(s): E11.65 - TYPE 2 DIABETES MELLITUS WITH HYPERGLYCEMIA (6) Lightheadedness Current Visit: Yes Status: Acute Assessment & Plan: Monitor BP trend. Will need orthostatics checked at [facility] when cleared by cardiology for ambulation. 04/24 - orthostats negative - pt to f/u OP with cardiology and will make her own appointment she stated Code(s): R42 - DIZZINESS AND GIDDINESS Code(s): R42 - DIZZINESS AND GIDDINESS - Discharge Discharge Date: 04/24/24 Disposition: Against Medical Advice Condition: Fair Prescriptions: Continue clonazePAM [Clonazepam] 1 tab PO HS Ticagrelor [Brilinta] 1 tab PO BID Potassium Chloride Tab* [Klor Con] 1 tab PO DAILY Metoprolol Tartrate 50 mg [Lopressor 50 MG] 1 tab PO HS Lisinopril 20 mg [Zestril 20 MG] 1 tab .ROUTE DAILY Gabapentin 1 tab PO TID Fluticasone Propionate [Flonase NASAL] 1 spray NS HS PRN PRN Reason: Allergies Ezetimibe 10 mg [Zetia 10 MG] 1 tab PO DAILY Escitalopram Oxalate 1 tab PO HS Empagliflozin [Jardiance] 1 tab PO DAILY Buspirone HCl 5 mg [Buspar 5 mg] 1 tab PO BID Atorvastatin Calcium 1 tab PO HS Albuterol 8 gm Mdi Hfa [Ventolin Hfa MDI] 2 puffs IH Q4H PRN PRN Reason: Shortness Of Breath Furosemide 20 mg [Lasix 20 mg] 20 mg PO DAILY Follow up with: DOCTOR,NO FAMILY [Primary Care Provider] -
[2024-04-24] MEDS ORDERED: NON-FORMULARY ITEM (Atorvastatin Calcium [Atorvastatin Calcium] 80 MG Tablet) PO SCH (22:00)
[2024-04-24] MEDS ORDERED: NON-FORMULARY ITEM (Clonazepam [Clonazepam] 0.5 MG Tab.Rapdis) PO SCH (22:00)
[2024-04-24] MEDS ORDERED: clonazePAM PO SCH (22:00)
[2024-04-24] MEDS ORDERED: NON-FORMULARY ITEM (Escitalopram Oxalate [Escitalopram Oxalate] 20 MG Tablet) PO SCH (22:00)
[2024-04-24] MEDS ORDERED: Lopressor 50 MG PO SCH (22:00)
[2024-04-24] MEDS ORDERED: LIPITOR 40MG PO SCH (22:00)
[2024-04-24] MEDS ORDERED: Lexapro PO SCH (22:00)
== END 2024-04-24 10:14 | disposition left against medical advice (07) ==
LOC: ED 21:11 → MED SURG 04-24 01:05
PROVIDERS: ADMIT Internal Medicine; ATTEND Internal Medicine
DX: R07.9 Chest pain, unspecified (principal); I25.10 Atherosclerotic heart disease of native coronary artery without angina pectoris; I10 Essential (primary) hypertension; E78.5 Hyperlipidemia, unspecified; E11.65 Type 2 diabetes mellitus with hyperglycemia; R42 Dizziness and giddiness; F17.200 Nicotine dependence, unspecified, uncomplicated; Z79.01 Long term (current) use of anticoagulants; Z95.0 Presence of cardiac pacemaker
CPT/HCPCS: 36415; 71045; 80053; 82947; 83880; 84484; 85025; 85610; 93005; 93041; 94760; Q3014; 99284; A9270-GY